=== PATIENT | female | born 2000 | race African-American/Black ===

== ENCOUNTER 2018-06-23 09:14 | Emergency (ER) | payer OTHER ==
[2018-06-23 09:33] VITALS: BP 129/78; TEMP 97.8; BMI 36.8
[2018-06-23 10:19] VITALS: PULSE 66
--- NOTE | 2018-06-23 10:28 | PDOC ---
History of Present Illness - General Chief Complaint: Allergic Reaction Stated Complaint: BODY RASH Time Seen by Provider: 06/23/18 10:27 History Source: Patient Exam Limitations: No Limitations - History of Present Illness Initial Comments: 18 yo F w no pmh presents to the ER after she applied some peppermint oil on her head last night. Today she states that she feels itchy all over and is uncomfortable. She has no history of allergies, anaphylaxis, asthma, or past adverse reactions. She denies experiencing any shortness of breath or difficulty breathing. Denies any lip or tongue swelling and denies any rashes. She states her skin looks like she has goosebumps but no rashes. Denies recent fevers, chills, or infections. Denies any chest pain. PCP: None PSH: None Social hx: Denies current smoking, drinking, or other substance usage Allergies: NKA, NKDA Past History - Past Medical History Allergies/Adverse Reactions: Allergies Allergy/AdvReac Type Severity Reaction Status Date / Time No Known Allergies Allergy Verified 10/07/14 13:41 Home Medications: Ambulatory Orders NK [No Known Home Medication] 10/07/14 COPD: No - Immunization History Immunization Up to Date: Yes - Suicide/Smoking/Psychosocial Hx Smoking History: Current every day smoker Have you smoked in the past 12 months: No Information on smoking cessation initiated: No Hx Alcohol Use: No Drug/Substance Use Hx: No Substance Use Type: None Review of Systems - Review of Systems Able to Perform ROS?: Yes Comments:: CONSTITUTIONAL: Absent: fever, no chills, no fatigue EYES: Absent: visual changes ENT: Absent: ear pain, no sore throat CARDIOVASCULAR: Absent: chest pain, no palpitations RESPIRATORY: Absent: cough, no SOB GI: Absent: abdominal pain, no nausea, no vomiting, no constipation, no diarrhea GENITOURINARY: Absent: dysuria, no frequency, no hematuria MUSKULOSKELETAL: Absent: back pain, no arthralgia, no myalgia SKIN: Absent: rash NEURO: Absent: headache *Physical Exam - Vital Signs Last Vital Signs Temp Pulse Resp BP Pulse Ox 97.8 F 66 18 129/78 99 06/23/18 09:26 06/23/18 10:03 06/23/18 10:03 06/23/18 09:26 06/23/18 10:03 - Physical Exam Comments: GENERAL: Well-appearing, well-nourished. No apparent distress. HEENT: Normocephalic, atraumatic. PERRL, EOM intact. CARDIOVASCULAR: Normal S1, S2. Regular rate and rhythm. PULMONARY: No evidence of respiratory distress. Lungs clear to auscultation bilaterally. No wheezing, rales or rhonchi. ABDOMEN: Soft, non-distended, non-tender. EXTREMITIES: Normal ROM in all four extremities. No gross deformities. SKIN: Warm, dry. No rash NEUROLOGICAL: No focal neurological deficits. Medical Decision Making - Medical Decision Making 18 yo F w no pmh presents to the ER after she applied some peppermint oil on her head last night. Today she states that she feels itchy all over and is uncomfortable. She has no history of allergies, anaphylaxis, asthma, or past adverse reactions. She denies experiencing any shortness of breath or difficulty breathing. Denies any lip or tongue swelling and denies any rashes. She states her skin looks like she has goosebumps but no rashes. Denies recent fevers, chills, or infections. Denies any chest pain. VS: WNL DDx IBNLT: Adverse topical reaction, atopic dermatitis, contact dermatitis, anaphylaxis. Plan: Benadryl, prednisone, re-assess Patient is overall well appearing with clear breath sounds and no distress. Will DC with resident clinic follow up. *DC/Admit/Observation/Transfer Diagnosis at time of Disposition: Allergic reaction - Discharge Dispostion Disposition: HOME Condition at time of disposition: Stable Decision to Admit order: No - Referrals Referrals: Toyin Sanchez MD [Primary Care Provider] - - Patient Instructions Printed Discharge Instructions: DI for Adverse Drug Reaction -- Allergic Additional Instructions: You came into the ER with itchiness. We gave you some benadryl and steroids. Drink plenty of fluids. Take 50 mg of benadryl as needed for comfort. Make sure to schedule a doctors appointment in the next 3 to 5 days to make sure you are getting better and being taken care of. Come back to the ER immediately if your symptoms get worse, you experience shortness of breath or difficulty breathing, your lips or tongue start to swell , or have any other new or worsening concerns. Thank you for coming to the [facility]. We hope you feel better soon! Print Language: ECUADOREAN - Post Discharge Activity Forms/Work/School Notes: Back to School
[2018-06-23] MEDS ORDERED: diphenhydrAMINE HCL 25 MG CAPSULE (FP) PO ONE ×2 (10:31→10:34)
[2018-06-23] MEDS ORDERED: predniSONE 20 MG TABLET (UD) PO ONE (11:12)
--- NOTE | 2018-06-23 11:16 | PDOC ---
Attending Attestation - Resident Resident Name: Rolly Fowler - ED Attending Attestation I have performed the following: I have examined & evaluated the patient, The case was reviewed & discussed with the resident, I agree w/resident's findings & plan, Exceptions are as noted - HPI HPI: 06/23/18 11:13 18 yo F with no pmhx here with allergic reaction to peppermint oil. stats she put it in her hair this am, now feels like her face is burning. and her tongue is tingling. did not rinse oil off yet. also uses alice hip oil which she has used in the pst. no h/o severe allergic reaction in the past. no sob. no wheezing. no lip or tongue swelling. no new medications. - Physicial Exam PE: 06/23/18 11:15 awake alert eyes clear no inj. scalp no rash. skin wtih small papular rash/ vs. acne lips no swelling. uvula midline. no stridor. lungs clear bilaterally heart rrr no mrg abd soft nt nd. ext wwp. no edema. no rash. - Medical Decision Making 06/23/18 11:16 18 yo F with nop mhx here with allergic dermatitis/ reaction. plan told to go home to wash out oil take shower, given benadryl, one dose of steroids. dc home.
[2018-06-23] MEDS ORDERED: predniSONE 20 MG TABLET (UD) ONE (11:22)
== END 2018-06-23 12:40 | disposition home or self-care (01) ==
LOC: JER 09:14
DX: L23.5 Allergic contact dermatitis due to other chemical products (principal); T49.3X5A Adverse effect of emollients, demulcents and protectants, initial encounter; Y92.038 Other place in apartment as the place of occurrence of the external cause
CPT/HCPCS: 99282-25

== ENCOUNTER 2022-10-02 07:18 | Emergency (ER) | payer OTHER ==
[2022-10-02 07:26] VITALS: TEMP 97.8; BMI 36.3
[2022-10-02] MEDS ORDERED: ACETAMINOPHEN 325 MG TABLET (FP) PO ONE (09:03)
[2022-10-02] MEDS ORDERED: ACETAMINOPHEN 325 MG TABLET (FP) ONE (09:15)
[2022-10-02 09:21] VITALS: BP 122/86; PULSE 68; RESP 18
== END 2022-10-02 09:30 | disposition home or self-care (01) ==
LOC: JERFT 07:18
DX: R51.9 Headache, unspecified (principal); R06.02 Shortness of breath; V47.5XXA Car driver injured in collision with fixed or stationary object in traffic accident, initial encounter
CPT/HCPCS: 99283-25